=== PATIENT | female | born 1985 | race Caucasian/White ===

== ENCOUNTER 2024-05-14 21:38 | Emergency (ER) | payer BC, MEDICAID ==
[2024-05-14] MEDS ORDERED: CEPHALEXIN500 M1 PO (21:52)
[2024-05-14] MEDS ORDERED: ABILIFY 10MG TA10 MG (21:52)
[2024-05-14] MEDS ORDERED: SERTRALINE50 MG PO (21:52)
[2024-05-14 22:06] LABS: BASO # 0.02 K/mm3 (0.02-0.10); EOS # 0.04 K/mm3 (0.04-0.40); EOS % 0.3 % (1.0-5.0); HEMATOCRIT 32.1 % (37.0-47.0); HEMOGLOBIN 11.2 g/dL (12.5-16.0); LYMPH# 1.34 K/mm3 (1.50-4.00); MEAN CELL VOLUME 84 fl (78-100); MEAN CORPUSCULAR HEMOGLOBIN 29 pg (27-31); MEAN CORPUSCULAR HGB CONC 35 g/dL (33-37); MEAN PLATELET VOLUME 10.2 fl (7.4-10.4); MONO # 0.52 K/mm3 (0.20-0.80); NEU # 11.03 K/mm3 (1.40-6.50); PLATELET COUNT 231 K/mm3 (130-400); RED BLOOD COUNT 3.82 M/mm3 (4.10-5.30); RED CELL DISTRIBUTION WIDTH 14.9 % (11.5-14.5)
[2024-05-14 22:13] LABS: ALBUMIN 3.7 g/dL (3.5-5.0)
[2024-05-14 22:15] LABS: CALCIUM 9.1 mg/dL (8.3-10.5)
[2024-05-14] MEDS ORDERED: NS 1,000 ML IV SCH (22:15)
[2024-05-14 22:16] LABS: TOTAL PROTEIN 7.2 g/dL (6.4-8.3)
[2024-05-14 22:18] LABS: TOTAL BILIRUBIN 0.2 mg/dL (0.2-1.2)
[2024-05-14] MEDS ORDERED: Ondansetron 4 MG/2 ML VIAL IV ONE (22:30)
[2024-05-14] MEDS ORDERED: fentaNYL 100 MCG/2 ML VIAL IV ONE (23:15)
[2024-05-14 23:23] LABS: URINE APPEARANCE CLOUDY (CLEAR); URINE COLOR YELLOW (YELLOW)
[2024-05-14 23:31] LABS: URINE BILIRUBIN NEGATIVE (NEGATIVE); URINE BLOOD 2+ (NEGATIVE); URINE GLUCOSE NEGATIVE (NEGATIVE); URINE KETONE 4+ (NEGATIVE); URINE LEUKOCYTE ESTERASE TRACE (NEGATIVE); URINE NITRATE NEGATIVE (NEGATIVE); URINE PROTEIN(semi-quant) 2+ (NEGATIVE)
[2024-05-14 23:32] LABS: URINE WBC 16-30 /hpf (0-3)
[2024-05-15 00:05] VITALS: BP 124/72
== END 2024-05-15 00:05 | disposition short-term general hospital (02) ==
LOC: ED 21:38
PROVIDERS: Nurse Practitioner
DX: O23.41 Unspecified infection of urinary tract in pregnancy, first trimester (principal); Z3A.12 12 weeks gestation of pregnancy
CPT/HCPCS: J2405; J3010; J7030